=== PATIENT | female | born 1945 | race African-American/Black ===

== ENCOUNTER 2017-09-07 08:58 | Outpatient (CLI) | payer OTHER ==
[~2017-09-07 08:58] MED LIST: CILOSTAZOL100 MG; CIPRO500 MG PO; ETODOLAC500 MG; INTESTINEX1 CAP PO; LOTREL 5-20 MG1 CAP; PERCOCET 5/321 UDTAB PO; PLETAL PO; PRAVASTATIN SOD20 MG; PROTONIX40 MG PO; RYBIX ODT50 MG; SYNTH PO; XARELTO10 MG PO
== END 2017-09-07 09:09 | disposition home or self-care (01) ==
LOC: NUCLEAR 08:58
DX: C64.1 Malignant neoplasm of right kidney, except renal pelvis (principal)
CPT/HCPCS: 78306; 78320; A9503

== ENCOUNTER → 2018-01-30 | Outpatient (CLI) | payer OTHER | END | disposition home or self-care (01) | LOC: RAD 09:03 | DX: R10.84 Generalized abdominal pain (principal); M46.47 Discitis, unspecified, lumbosacral region ==

== ENCOUNTER 2018-11-28 12:58 | Emergency (ER) | payer OTHER ==
[~2018-11-28] VITALS: Ht 154.9 cm; Wt 96.2 kg
[2018-11-28] MEDS ORDERED: SYNTHROID50 MCG (13:50)
[2018-11-28] MEDS ORDERED: VITAMIN D3 COM1 EACH (13:51)
[2018-11-28] MEDS ORDERED: CILOSTAZOL100 MG (13:51)
[2018-11-28] MEDS ORDERED: ACYCLOVIR800 MG PO (15:05)
== END 2018-11-28 15:09 | disposition home or self-care (01) ==
LOC: ER 12:58
DX: B02.9 Zoster without complications (principal)

== ENCOUNTER 2019-01-16 09:23 | Outpatient (CLI) | payer OTHER ==
[~2019-01-16 09:23] MED LIST changes: +ACYCLOVIR800 MG PO; +SYNTHROID50 MCG; +VITAMIN D3 COM1 EACH
== END 2019-01-16 09:26 | disposition home or self-care (01) ==
LOC: SONOGRAMA 09:23
DX: R10.13 Epigastric pain (principal)

== ENCOUNTER 2019-11-24 10:10 | Outpatient (CLI) | payer OTHER | END 2019-11-24 10:13 | disposition home or self-care (01) | LOC: SONOGRAMA 10:10 | DX: S49.81XA Other specified injuries of right shoulder and upper arm, initial encounter (principal) ==

== ENCOUNTER 2019-12-30 06:22 | Emergency (ER) | payer OTHER ==
[~2019-12-30] VITALS: Ht 154.9 cm; Wt 95.3 kg
[~2019-12-30 06:22] MED LIST changes: -SYNTHROID50 MCG; +SYNTHROID50 MCG PO
== END 2019-12-30 08:02 | disposition home or self-care (01) ==
LOC: ER 06:22
DX: M25.511 Pain in right shoulder (principal); I10 Essential (primary) hypertension

== ENCOUNTER 2020-01-06 06:21 | Day surgery (SDC) | payer OTHER ==
[2020-01-06] MEDS ORDERED: PERCOCET 2.5-31 EACH PO (09:47)
[2020-01-06] MEDS ORDERED: DUI500 PO (09:47)
== END 2020-01-06 11:25 | disposition home or self-care (01) ==
LOC: CIR.AMB 06:21
DX: M75.121 Complete rotator cuff tear or rupture of right shoulder, not specified as traumatic (principal); M19.011 Primary osteoarthritis, right shoulder; M65.811 Other synovitis and tenosynovitis, right shoulder

== ENCOUNTER 2023-08-24 11:13 | Outpatient (CLI) | payer OTHER ==
[~2023-08-24 11:13] MED LIST changes: +CELEBREX200MG PO; +DUI500 PO; +PERCOCET 2.5-31 EACH PO
== END 2023-08-24 11:14 | disposition home or self-care (01) ==
LOC: NUCLEAR 11:13
PROVIDERS: ATTEND Internal Medicine Cardiovascular Disease
DX: G45.9 Transient cerebral ischemic attack, unspecified (principal)